=== PATIENT | female | born 1945 | race Two or more races ===

== ENCOUNTER → 2020-02-28 09:32 | Outpatient (BNVA) | payer MEDICARE, SELFPAY | PROVIDERS: PCP Internal Medicine; Referring Provider Internal Medicine; Visit Provider Hospitalist | DX: J44.9 Chronic obstructive pulmonary disease, unspecified (principal); J96.11 Chronic respiratory failure with hypoxia; M79.89 Other specified soft tissue disorders; Z99.81 Dependence on supplemental oxygen | CPT/HCPCS: 99214 ==

== ENCOUNTER → 2020-09-17 13:57 | Outpatient (BNVA) | payer MEDICARE, SELFPAY | PROVIDERS: PCP Internal Medicine; Visit Provider Hospitalist | DX: J96.10 Chronic respiratory failure, unspecified whether with hypoxia or hypercapnia (principal); J41.0 Simple chronic bronchitis; K31.819 Angiodysplasia of stomach and duodenum without bleeding; D50.9 Iron deficiency anemia, unspecified; Z88.0 Allergy status to penicillin; Z99.89 Dependence on other enabling machines and devices; Z79.52 Long term (current) use of systemic steroids; Z79.899 Other long term (current) drug therapy | CPT/HCPCS: 99212 ==

== ENCOUNTER 2020-09-29 14:45 | Outpatient (REF) | payer MEDICARE, SELFPAY | END 2020-09-29 14:46 | disposition home or self-care (01) | LOC: HO.RESP 14:45 | PROVIDERS: Visit Provider Hospitalist | DX: J41.0 Simple chronic bronchitis (principal) | CPT/HCPCS: 94060; 94727; 94729 ==